=== PATIENT | female | born 1980 | race Caucasian/White ===

== ENCOUNTER 2016-11-14 22:59 | Emergency (ER) ==
[2016-11-14 23:02] VITALS: BP 139/92; TEMP 98.9; BMI 40.1
--- NOTE | 2016-11-14 23:30 | ED.PDOC ---
General ED Provider: Dr. CHARLIE RIDDLE-ER Chief Complaint: Knee Pain/Injury Stated Complaint: i strained my knee Time Seen by Physician: 23:05 Mode of Arrival: Walk-In Information Source: Patient, Family Exam Limitations: No limitations [facility] Documentation Reviewed and Agree: Yes Musculoskeletal Complaint Exam - Knee Pain Complaint/Exam Mechanism of Injury: Reports: Trauma Onset/Duration: today Symptoms Are: Still present Onset of Pain: Reports: Immediate Initial Severity: Mild Current Severity: Moderate Location: Reports: Discrete (left knee) Character: Reports: Dull, Aching Aggravating: Reports: Movement, Weight bearing, Prolonged standing Associated Signs and Symptoms: Denies: Swelling, Redness, Bruising, Fever, Weakness, Numbness, Tingling Able to Bear Weight: Yes Septic Arthritis Risk Factors: Reports: None Gout Risk Factors: Reports: None Knee Findings: Present: Swelling, Tenderness, Limited range of motion Jv Test Positive: No Hadley Test Positive: No Differential Diagnoses: Internal Derangement, Sprain, Strain Review of Systems - Review Of Systems Constitutional: Reports: No symptoms Eyes: Reports: No symptoms Ears, Nose, Mouth, Throat: Reports: No symptoms Respiratory: Reports: No symptoms Cardiac: Reports: No symptoms GI: Reports: No symptoms : Reports: No symptoms Musculoskeletal: Reports: Joint pain, Joint swelling, Muscle pain Skin: Reports: No symptoms Neurological: Reports: No symptoms Endocrine: Reports: No symptoms Hematologic/Lymphatic: Reports: No symptoms All Other Systems: Reviewed and Negative Past Medical History - Past Medical History Previously Healthy: Yes Endocrine: Reports: None Cardiovascular: Reports: None Respiratory: Reports: None Hematological: Reports: None Gastrointestinal: Reports: None Genitourinary: Reports: None Neuro/Psych: Reports: None Musculoskeletal: Reports: Back Pain Cancer: Reports: None Last Menstrual Period: 1 week ago - Surgical History General Surgical History: Reports: Tubal ligation, , Cholecystectomy - Family History Family History: Reports: Unknown - Social History Smoking Status: Current every day smoker Hx Substance Use: No Alcohol Screening: Occasionally Lives: With family Physical Exam - Physical Exam Appearance: Well-appearing, No pain distress, Well-nourished Pain Distress: Moderate Eyes: COURT, EOMI, Conjunctiva clear ENT: Ears normal, Nose normal, Oropharynx normal Neck: Supple Respiratory: Airway patent, Breath sounds clear, Breath sounds equal, Respirations nonlabored Cardiovascular: RRR GI/: Soft, Nontender, No masses, Bowel sounds normal, No Organomegaly Musculoskeletal: Normal strength Skin: Warm Neurological: Sensation intact Psychiatric: Affect appropriate, Mood appropriate, Anxious Interpretation - Radiology Interpretation Radiology Interpretation By: ED Physician Radiology Results: Negative Critical Care Note - Critical Care Note Total Time (mins): 0 Course - Course Orders, Labs, Meds: Orders Category Date Time Status ED DAVID WRAP .ONCE EMERGENCY 11/14/16 23:36 Active ED CRUTCHES .ONCE EMERGENCY 11/14/16 23:36 Active Hydrocodone Bit/Acetaminophen [[place] 7.5-325] MEDS 11/14/16 23:36 Stat 1 tab PO ONCE STA KNEE, LEFT 4 VIEWS Stat RADS 11/14/16 23:10 Taken Vital Signs: Temp Pulse Resp BP Pulse Ox 11/14/16 23:00 98.9 F 100 H 14 139/92 H 97 Departure - Departure Time of Disposition: 23:37 Disposition: HOME SELF-CARE Discharge Problem: Injury of knee Instructions: Leg Sprain (ED) Condition: Good Pt referred to PMD for follow-up: Yes Additional Instructions: ice and elevation tonight--norco 7.5mg q 4hrs prn pain#15--use crutches--see your pcp--you need mri vs ortho referral Allergies/Adverse Reactions: Allergies No Known Allergies Allergy (Verified 11/14/16 23:02) Home Medications: Ambulatory Orders Citalopram Hydrobromide [Celexa] 10 mg PO DAILY 07/31/15 Trazodone HCl 50 mg PO BEDTIME PRN #30 03/01/16 Disposition Discussed With: Patient, Family
[2016-11-14] MEDS ORDERED: NORCO 7.5-325 PO STA (23:36)
--- NOTE | 2016-11-14 23:41 | DI ---
Exam: Left knee four views History: Knee injury and pain Findings / impression: No bony or articular abnormality of the left knee. No obvious joint effusio n. Negative exam.
== END 2016-11-14 23:58 | disposition home or self-care (01) ==
LOC: ED 22:59
DX: S89.92XA Unspecified injury of left lower leg, initial encounter (principal); F17.210 Nicotine dependence, cigarettes, uncomplicated
CPT/HCPCS: 99283

== ENCOUNTER 2016-12-11 03:11 | Emergency (ER) ==
[2016-12-11 03:21] VITALS: BP 115/79; TEMP 98.7; BMI 40.0
--- NOTE | 2016-12-11 03:51 | DI ---
Exam: Chest two-view History: Cough FINDINGS: Normal cardiomediastinal contours. Normal pulmonary vasculature. Subtle interstitial pr ominence of the left lung base possibly retrocardiac. No correlation on the lateral projection. No consolidative opacities. Remainder of the lungs are clear. No acute chest wall abnormality. Minor endplate degenerative change. Impression: 1. Question subtle left basilar interstitial prominence could represent pneumonitis. No correlate on the lateral projection. Negative exam otherwise.
[2016-12-11] MEDS ORDERED: PREDNISONE PO STA (04:05)
[2016-12-11] MEDS ORDERED: DUONEB NEB STA (04:05)
[2016-12-11] MEDS ORDERED: LEVAQUIN PO STA (04:06)
--- NOTE | 2016-12-11 04:07 | ED.PDOC ---
General ED Provider: Dr. ANGELICA DELGADO Chief Complaint: Cough Stated Complaint: Pateint complains of cough productive of sputum for 5 days not improving. Admits to smoking 1/2 ppd but has not had a cigg in 5 days Time Seen by Physician: 03:50 Mode of Arrival: Walk-In Information Source: Patient Exam Limitations: No limitations [facility] Documentation Reviewed and Agree: Yes Respiratory Complaint Exam - Respiratory Complaint/Exam Onset/Duration: 5 days Symptoms Are: Still present Timing: Constant Initial Severity: Moderate Current Severity: Severe Location: Chest Character: Reports: Productive cough Aggravating: Reports: URI, Passive smoke exposure, Weather Alleviating: Reports: None Associated Signs and Symptoms: Reports: URI. Denies: Rapid breathing, Dyspnea, Fever, Chills, Chest pain, Pleuritic chest pain, Wheezing, Hemoptysis, Dizziness , Calf pain, Calf swelling, Edema, Nasal congestion, Hoarseness, Sinus discomfort, Vomiting, Sore throat, Weight loss, Decreased oral intake, Increased thirst, Increased appetite, Increased urination History of Healthcare-Acquired Pneumonia: No Related Surgical History: Reports: None Pulmonary Embolism Risk Factors: None Cardiac Risk Factors: Reports: None Pseudomonas Risk Factors: Reports: None Tuberculosis Risk Factors: Reports: None Status Asthmaticus Risk Factors: Reports: None Home Oxygen Use: No Recent Stress Test: No Recent Echo/LV Function: No Current Antibiotic Use: No Current Asthma Medication Use: No Respiratory Distress: None Inadequate Respiratory Effort: No Dysphagia Present: No Stridor Present: No JVD Present: No Accessory Muscle Use: No Retractions: Not Present Diminished Breath Sounds: No Sinus Tenderness: None Grunting Respirations: No Kussmaul Respirations: No Differential Diagnoses: Pneumonia, Bronchitis Review of Systems - Review Of Systems Constitutional: Reports: No symptoms Eyes: Reports: No symptoms Ears, Nose, Mouth, Throat: Reports: No symptoms Respiratory: Reports: Cough, Wheezing Cardiac: Reports: No symptoms GI: Reports: No symptoms : Reports: No symptoms Musculoskeletal: Reports: No symptoms Skin: Reports: No symptoms Neurological: Reports: Anxiety Endocrine: Reports: No symptoms Hematologic/Lymphatic: Reports: No symptoms All Other Systems: Reviewed and Negative Past Medical History - Past Medical History Previously Healthy: Yes Endocrine: Reports: None Cardiovascular: Reports: None Respiratory: Reports: None Hematological: Reports: None Gastrointestinal: Reports: None Genitourinary: Reports: None Neuro/Psych: Reports: None Musculoskeletal: Reports: Back Pain Cancer: Reports: None Last Menstrual Period: 11/27/16 - Surgical History General Surgical History: Reports: Tubal ligation, , Cholecystectomy - Family History Family History: Reports: Unknown - Social History Smoking Status: Current every day smoker Hx Substance Use: No Alcohol Screening: Occasionally - Immunizations Tetanus Shot up to Date: Yes Physical Exam - Physical Exam Appearance: Ill-appearing, Obese Ill-appearing: Moderate Pain Distress: None Eyes: COURT, EOMI, Conjunctiva clear ENT: Ears normal, Nose normal, Oropharynx normal Neck: Supple Respiratory: Rhonchi (mild on the left ), Wheezes (very faint) GI/: Soft, Nontender, No masses, Bowel sounds normal, No Organomegaly Musculoskeletal: Normal strength, ROM intact, No edema, No calf tenderness Skin: Warm, Dry, Normal color Neurological: Sensation intact, Motor intact, Reflexes intact, Cranial nerves intact, Alert, Oriented Psychiatric: Anxious Interpretation - Radiology Interpretation Radiology Interpretation By: Radiologist Radiology Results: Positive Exam Interpreted: CXR (subtile left basilar intersitial prominece) Critical Care Note - Critical Care Note Total Time (mins): 0 Course - Course Orders, Labs, Meds: Orders Category Date Time Status CHEST, 2 VIEWS PA & LAT Stat RADS 12/11/16 03:27 Completed Vital Signs: Temp Pulse Resp BP Pulse Ox 12/11/16 03:11 98.7 F 93 H 20 115/79 95 Departure - Departure Time of Disposition: 04:45 Disposition: HOME SELF-CARE Discharge Problem: Left lower lobe pneumonia Qualifiers: Pneumonia type: due to unspecified organism Qualifier Code: (J18.1) Lobar pneumonia, unspecified organism Instructions: Pneumonitis (ED) Condition: Fair Pt referred to PMD for follow-up: Yes Additional Instructions: Take medications as prescribed Follow up with PCP in 3 days Prescriptions: Levofloxacin [Levaquin] 500 mg PO DAILY #10 tablet Allergies/Adverse Reactions: Allergies No Known Allergies Allergy (Verified 12/11/16 03:20) Home Medications: Ambulatory Orders Citalopram Hydrobromide [Celexa] 10 mg PO DAILY 07/31/15 Trazodone HCl 50 mg PO BEDTIME PRN #30 03/01/16 Levofloxacin [Levaquin] 500 mg PO DAILY #10 tablet 12/11/16 Disposition Discussed With: Patient, Family
== END 2016-12-11 04:45 | disposition home or self-care (01) ==
LOC: ED 03:11
DX: J18.1 Lobar pneumonia, unspecified organism (principal); F17.210 Nicotine dependence, cigarettes, uncomplicated
CPT/HCPCS: 94640; 99283

== ENCOUNTER 2017-10-09 20:56 | Emergency (ER) ==
[2017-10-09 21:11] VITALS: BP 112/78; TEMP 97.4; BMI 41.0
[2017-10-09] MEDS ORDERED: DILAUDID 2 MG/ML SYRINGE IM STA (21:31)
[2017-10-09] MEDS ORDERED: PHENERGAN 25 MG/ML VIAL IM STA (21:31)
[2017-10-09] MEDS ORDERED: TORADOL IM STA (21:31)
--- NOTE | 2017-10-09 21:35 | ED.PDOC ---
General ED Provider: Dr. CHARLIE RIDDLE-ER Chief Complaint: Headache Stated Complaint: michelle got a migraine Time Seen by Physician: 21:33 Mode of Arrival: Walk-In Information Source: Patient Exam Limitations: No limitations Primary Care Provider: JAMEEL SANCHEZ Nursing and Triage Documentation Reviewed and Agree: Yes Reviewed sepsis parameters & appropriate labs ordered?: Yes System Inflammatory Response Syndrome: Not Applicable Sepsis Protocol: For patient's 13 years and over: Temp is 96.8 and below OR 101 and greater Pulse >90 BPM Resp >20/minute Acutely Altered Mental Status Are patient's symptoms suggestive of a new infection, such as: -Pneumonia -Skin, Soft Tissue -Endocarditis -UTI -Bone, Joint Infection -Implantable Device -Acute Abdominal Infection -Wound Infection -Meningitis -Blood Stream Catheter Infection -Unknown Neurological Complaint Exam - Headache Complaint/Exam Onset: Gradual Duration: several hours Symptoms Are: Still present Timing: Constant Worst Headache Ever: No Initial Severity: Mild Current Severity: Moderate Location: Diffuse Character: Reports: Dull, Throbbing, Typical headache, Migraine Aggravating: Reports: Bright lights Alleviating: Reports: None Associated Signs and Symptoms: Reports: Nausea, Vomiting. Denies: Dizziness, Seizure, Sinus pressure, Fever, Neck pain Related History: Reports: Similar episode. Denies: Recent trauma, Remote trauma Related Surgical History: Reports: None SAH Risk Factors: Reports: None Temporal Arteritis Risk Factors: Reports: Female, Normal Head CT Within Last 12 Months: No Fundoscopic Exam: Present: Normal Findings Papilledema Present: No Temporal Artery Tenderness: Present: None Sinus Tenderness: Present: None TMJ Tenderness: Present: None Glascow Coma Scale (see protocol): 15 Meningeal Signs Positive: Yes Pain on Passive Flexion-Positive Kernig's: No ROM Limited In: No Limitiations Focal Weakness: Present: None Gait: Normal Nystagmus Present: No Gag Reflex Present: Yes [id number]: Normal Findings Romberg Test Positive: No Babinski Sign: Negative Right, Negative Left Differential Diagnoses: Migraine Review of Systems - Review Of Systems Constitutional: Reports: No symptoms Eyes: Reports: No symptoms Ears, Nose, Mouth, Throat: Reports: No symptoms Respiratory: Reports: No symptoms Cardiac: Reports: No symptoms GI: Reports: Nausea, Vomiting : Reports: No symptoms Musculoskeletal: Reports: No symptoms Skin: Reports: No symptoms Neurological: Reports: Headache Endocrine: Reports: No symptoms Hematologic/Lymphatic: Reports: No symptoms All Other Systems: Reviewed and Negative Past Medical History - Past Medical History Previously Healthy: Yes Endocrine: Reports: None Cardiovascular: Reports: None Respiratory: Reports: None Hematological: Reports: None Gastrointestinal: Reports: None Genitourinary: Reports: None Neuro/Psych: Reports: None Musculoskeletal: Reports: Back Pain Cancer: Reports: None Last Menstrual Period: 1 WEEK AGO - Surgical History General Surgical History: Reports: Tubal ligation, , Cholecystectomy - Family History Family History: Reports: Unknown - Social History Smoking Status: Current every day smoker, Light tobacco smoker Hx Substance Use: No Alcohol Screening: None Lives: With family - Immunizations Tetanus Shot up to Date: Yes Physical Exam - Physical Exam Appearance: Well-appearing, No pain distress, Well-nourished Eyes: COURT, EOMI, Conjunctiva clear ENT: Ears normal, Nose normal, Oropharynx normal Neck: Supple Respiratory: Airway patent, Breath sounds clear, Breath sounds equal, Respirations nonlabored Cardiovascular: RRR, Pulses normal, No rub, No murmur GI/: Soft, Nontender, No masses, Bowel sounds normal, No Organomegaly Musculoskeletal: Normal strength Skin: Warm Neurological: Sensation intact Psychiatric: Affect appropriate, Mood appropriate, Anxious Interpretation - Radiology Interpretation Radiology Interpretation By: Radiologist Radiology Results: Negative Exam Interpreted: CT Scan Re-Evaluation - Re-Evaluation Time of Re-Evaluation: 23:10 Status: Improved Vital Signs Stable: Yes Pain Level: 1 Appearance: NAD Lungs: Clear Skin: Warm and Dry Neuro: Alert and Oriented X3 CV: RRR Critical Care Note - Critical Care Note Total Time (mins): 0 Course - Course Orders, Labs, Meds: Lab Review 10/09/17 21:45 Serum , Qual Negative Orders Category Date Time Status SERUM Stat LAB 10/09/17 21:45 Completed Hydromorphone HCl/Pf [Dilaudid 2 mg/ml Syringe] MEDS 10/09/17 21:31 Discontinued 2 mg IM ONCE STA Ketorolac Tromethamine [Toradol] MEDS 10/09/17 21:31 Discontinued 60 mg IM ONCE STA Promethazine HCl [Phenergan 25 mg/ml Vial] MEDS 10/09/17 21:31 Discontinued 25 mg IM ONCE STA CT HEAD W/O CONTRAST Stat RADS 10/09/17 21:31 Completed Medications Discontinued Medications Generic Name Dose Route Start Last Admin Trade Name Kirstin PRN Reason Stop Dose Admin Hydromorphone HCl 2 mg 10/09/17 21:31 10/09/17 22:13 Dilaudid 2 Mg/Ml Syringe IM 10/09/17 21:32 2 mg ONCE STA Administration Ketorolac Tromethamine 60 mg 10/09/17 21:31 10/09/17 22:13 Toradol IM 10/09/17 21:32 60 mg ONCE STA Administration Promethazine HCl 25 mg 10/09/17 21:31 10/09/17 22:12 Phenergan 25 Mg/Ml Vial IM 10/09/17 21:32 25 mg ONCE STA Administration Vital Signs: Temp Pulse Resp BP Pulse Ox 10/09/17 20:57 97.4 F L 84 18 112/78 96 Departure - Departure Time of Disposition: 23:10 Disposition: HOME SELF-CARE Discharge Problem: Migraine Qualifiers: Migraine type: without aura Status migrainosus presence: without status migrainosus Intractability: not intractable Qualified Code(s): G43.009 - Migraine without aura, not intractable, without status migrainosus Instructions: Migraine Headache (ED) Condition: Good Pt referred to PMD for follow-up: Yes IPMP verified?: No Allergies/Adverse Reactions: Allergies bupropion [From Wellbutrin] Adverse Reaction (Verified 10/09/17 21:12) MIGRAINE ALSO N/V Home Medications: Ambulatory Orders Citalopram Hydrobromide [Celexa] 10 mg PO DAILY 07/31/15 Albuterol Sulfate [Proair Hfa] 2 puff IH Q6H PRN #1 puff 12/11/16 Disposition Discussed With: Patient, Family
--- NOTE | 2017-10-09 23:05 | CT ---
EXAM: CT scan brain without contrast HISTORY: Headache COMPARISON: None. FINDINGS: Contiguous axial images obtained from the skull base to the convexities without contrast u tilizing 5-mm collimation. Sagittal coronal reconstructions were imaged and reviewed. The ventricle s and CSF spaces are within normal limits. There are no acute intracranial findings. Visualized par anasal sinuses and mastoid air cells are clear. IMPRESSION: No acute intracranial findings
== END 2017-10-09 23:17 | disposition home or self-care (01) ==
LOC: ED 20:56
DX: G43.009 Migraine without aura, not intractable, without status migrainosus (principal); F17.210 Nicotine dependence, cigarettes, uncomplicated
CPT/HCPCS: 36415; 84703; 96372; 99283

== ENCOUNTER 2018-01-30 09:23 | Outpatient (CLI) ==
--- NOTE | 2018-01-30 12:20 | DI ---
EXAM: Lumbar spine radiographs. HISTORY: Low back pain. COMPARISON: 03/07/2010. TECHNIQUE: 5 views of the lumbar spine. FINDINGS: The normal curvature and alignment are maintained. Vertebral body heights are normal. No fracture or subluxation identified. There is moderate loss of disc height at L3-4 with mild loss of disc height at L4-5. Mild multilevel endplate osteophyte formation is present. Multilevel facet ar thropathy is greater in the lower lumbar spine, mild to moderate. Sacral arcuate lines are intact. Soft tissues are unremarkable. Cholecystectomy clips are present. IMPRESSION: Mild to moderate degenerative changes, greater in the lower lumbar spine.
== END 2018-01-30 09:24 | disposition home or self-care (01) ==
LOC: RAD 09:23
PROVIDERS: ATTEND Physician Assistant
DX: M54.5 Low back pain (principal)

== ENCOUNTER 2018-02-20 10:00 | Outpatient (RCR) ==
--- NOTE | 2018-01-31 10:31 | RS.OPPTEV2 ---
Date of Note: 01/30/18 Visit #: 1 Date of Evaluation: 01/30/18 Payer Source: Medicaid Surgery Performed?: No Treatment Diagnosis: Low back pain History of Condition/Mechanism of Injury:: pt reports she has had back pain for several years but had episode of increased back pain that began approx 2 weeks ago. Functional Limitations: Reaching, Carrying, Sitting, Standing, Bending, Ambulation, Community Access/Integration Current Subjective/complaints:: pt states pain increases with standing as well as sitting for prolonged periods of time. States she had xrays today prior to coming to therapy Treatment Side (optional): N/A *Precautions: n/a Medical History Medical History: Unremarkable Surgical History: Cholecystectomy Surgical History Comments:: 3 c sections, cyst removed from ovary Smoking Status: Current some day smoker Diagnostic Testing/Imaging:: lumbar xray from 01/30/18: mild to moderate degenerative changes greater in the lower lumbar spine Hx Home Medications: zoloft, ibuprofen Patient's Goals: decrease pain Pain Assessment - Pain Description Pain Location: lumbar area Pain Description: Aching Current Pain Intensity: 6 Functional Outcome Measure Oswestry LBP: 37 (74%) - G Codes & Severity Modifier G Codes & Modifier: n/a Source of G Code score: n/a Observation - Observation Inspection: LLE is longer than RLE, R iliac crest higher than L. Posture: Forward Head, Rounded Shoulders, Increased Thoracic Kyphosis, Decreased Lumbar Lordosis Handedness: Right Gait - Gait Pattern Gait Comments: amb with guarded posture General Range of Motion: BUE WFL's. BLE WFL's Muscle Strength: BUE 5/5. LLE: hip flex 3+/5, knee flex/ext 4-/5, ankle DF/PF 5 /5. RLE: hip flex 3/5, knee flex/ext 4/5, ankle DF/PF 5/5 - ROM Lumbar Flexion: Hand reach to Mid-Thighs Sidebending to Left: Reach to Mid-thigh Sidebending to Right: Reach to Mid-thigh Lumbar Spine ROM Limitations: Soft Tissue Tightness, Muscle Weakness, Pain Comments: pt with increased pain with all planes of motion. pt also with increased pain with hip flex. pt lumbar ROM is limited due to pain and muscle guarding - Strength Trunk Extension: 4- Good- Trunk Flexion: 3- Fair- Trunk Lateral Flexion: 3- Fair- Trunk Rotation: 3- Fair- - Special Tests SLR Test: Positive Left, Positive Right Seated Dural Stretch Test: Positive Left SI Joint Compression: Positive Palpation Palpation Findings: Tenderness, Trigger Point, Muscle Guarding Comments:: pt with tenderness and muscle guarding L lumbosacral area. Trigger points noted at L SI joint Sensation - Sensation Right Upper Extremity: Intact/Normal Left Upper Extremity: Intact/Normal Right Lower Extremity: Intact/Normal Left Lower Extremity: Impaired (n/t and pain radiating into LLE to thigh) Balance - Sitting Balance Static Sitting Balance: Normal Dynamic Sitting Balance: Normal - Standing Balance Static Standing Balance: Normal Dynamic Standing Balance: Normal - Treatment Modality: Ultrasound Parameters/Method Applied: 1.5w/cm2 x 7 mins Treatment Area: L SI area Patient Position: Sitting - Heat/Cryotherapy Treatment: Cryotherapy Comments:: L lumbosacral area Interventions - Exercise/Activities/Manual Therapy Exercises/Activities: pt received gentle hamstring stretches, isometric hip add x 3. Muscle energy technique with resisted L hip ext, R hip flex. Manual Therapy: n/a HOME EXERCISE PROGRAM: pt given written HEP including hamstring stretch, isometric hip add, standing lumbar ext and muscle energy - Charges Timed Code Treatment Minutes: 54 Total Treatment Time: 62 Procedures billed for this date of service:: eval low, ultrasound, hot pack EVALUATION COMPLEXITY LEVEL EVALUATION COMPLEXITY LEVEL: HISTORY: Low (LBP), EXAM OF BODY SYSTEMS: Medium, CLINICAL PRESENTATION: Medium, CLINICAL DECISION MAKING: Low Assessment Assessment: pt presents with pain in the L SI area radiating into L thigh. pt with muscle guarding, trigger points noted. pt with leg length discrepancy due to SI joint dysfunction. BLE strength decreased, limited due to pain. Patient Education: Home Exercise Program, Education of Plan of Care Rehab Potential: Good Short Term Goals Goal #1: pt rate pain < 6/10 with activity Goal to be met by: 02/13/18 Goal #2: B LE hamstring flexibility L equal to R Goal to be met by: 02/13/18 Goal #3: No leg length discrepancy noted. Goal to be met by: 02/13/18 Goal #4: pt independent with initial HEP Goal to be met by: 02/13/18 [facility] Goals Goal #1: pt with no reports of radiating pain into LLE Goal to be met by: 02/27/18 Goal #2: Increased ability to perform normal household duties w less pain Goal to be met by: 02/27/18 Goal #3: Improve BLE strength 4 to 4+/5 Goal to be met by: 02/27/18 Plan - Treatment to be Provided Procedures: Therapeutic Exercises, Neuromuscular Rehab, Manual Therapy, Massage , Patient Education Modalities: Electrical Stimulation, Ultrasound/Phonophoresis, Cryotherapy, Hot Packs - Treatment Plan Frequency: 2 X week Duration: 4 weeks ORDER # VISITS AND/OR THROUGH DATE: 02/27/18 - Treatment Code (1) Low back pain Code(s): M54.5 - LOW BACK PAIN Qualifiers: Chronicity: chronic Back pain laterality: left Sciatica presence: with sciatica Sciatica laterality: sciatica of left side Qualified Code(s): M54.42 - Lumbago with sciatica, left side; G89.29 - Other chronic pain (2) Sacroiliac dysfunction Code(s): M53.3 - SACROCOCCYGEAL DISORDERS, NOT ELSEWHERE CLASSIFIED (3) Radicular leg pain Code(s): M54.10 - RADICULOPATHY, SITE UNSPECIFIED (4) Muscle weakness Code(s): M62.81 - MUSCLE WEAKNESS (GENERALIZED) (5) Hamstring tightness Code(s): M62.89 - OTHER SPECIFIED DISORDERS OF MUSCLE
--- NOTE | 2018-02-06 11:18 | RS.OPPTDN ---
Subjective Date of Note: 02/06/18 Visit #: 2 Date of Evaluation: 01/30/18 Payer Source: Medicaid Treatment Diagnosis: Low back pain Current Subjective/complaints:: Patient reports she frequently has to change positions due to severe back pain. *Precautions: n/a Pain Assessment - Pain Description Pain Location: lumbar/LE's Pain Description: Burning, Radiating, Throbbing, Aching Current Pain Intensity: 8/10 - Heat/Cryotherapy Treatment: Hot Pack (20 mins. prior to exercises) Interventions - Exercise/Activities/Manual Therapy Exercises/Activities: 25 mins. total ,patient instruction and return demo of posterior pelvic tilts,SKTC,DKTC,90/90 hams. stretches.Also instructed in sidelying for gravity -assisted piriformis/IT band stretches. Total minutes of Exercise: 25 Manual Therapy: n/a Total minutes of Manual Therapy: 0 HOME EXERCISE PROGRAM: pt given written HEP including hamstring stretch, isometric hip add, standing lumbar ext and muscle energy - Charges Timed Code Treatment Minutes: 25 Total Treatment Time: 45 Procedures billed for this date of service:: hp,ex 2 Assessment: Patient reports relief with posterior pelvic tilts.She has good hamstring extensibility bilaterally.She has increased discomfort when in supine as the pelvis tilts anteriorly.Recommended if she wants to rest on her back to elevate the LE's as much as possible ,as flexion gives her relief.She is very attentive to recommendations for her low back care. Patient Education: Education of diagnosis, Body/Joint mechanics, Home Exercise Program, Home Safety, Activity Modification, Education of Plan of Care Patient demonstrates compliance with HEP?: Yes Short Term Goals Goal #1: pt rate pain < 6/10 with activity Goal to be met by: 02/13/18 Goal #2: B LE hamstring flexibility L equal to R Goal to be met by: 02/13/18 Progress towards Goal:: Partially Met Goal #3: No leg length discrepancy noted. Goal to be met by: 02/13/18 Progress towards Goal:: Progressing Goal #4: pt independent with initial HEP Goal to be met by: 02/13/18 Progress towards Goal:: Progressing Jail Goals Goal #1: pt with no reports of radiating pain into LLE Goal to be met by: 02/27/18 Goal #2: Increased ability to perform normal household duties w less pain Goal to be met by: 02/27/18 Goal #3: Improve BLE strength 4 to 4+/5 Goal to be met by: 02/27/18 Plan PLAN OF CARE EXPIRES ON:: 02/27/18 ORDER # VISITS AND/OR THROUGH DATE: 02/27/18 PLAN: Continue PT to eliminate back pain ,educate patient for better posture / body mechanics.
--- NOTE | 2018-02-10 12:02 | RS.OPPTDN ---
Subjective Date of Note: 02/10/18 Visit #: 3 Number of visits approved by Insurance: 8 Date of Evaluation: 01/30/18 Payer Source: Medicaid Treatment Diagnosis: Low back pain Current Subjective/complaints:: Reports the relief from last session lasted about 2 hours.Her pain today is slightly less than last session. *Precautions: n/a Pain Assessment - Pain Description Pain Location: lumbar Pain Description: Dull, Aching, Chronic Current Pain Intensity: 6 Other Comments regarding Pain:: reduced to 2/10 immediately after modalities and then in supine position - Treatment Modality: Ultrasound Parameters/Method Applied: 10 mins. @ 1.5 w/cm2 ,continuous mode to lumbar/SI region. Patient Position: Sitting - Heat/Cryotherapy Treatment: Hot Pack (20 mins. prior to US) Interventions - Exercise/Activities/Manual Therapy Exercises/Activities: 20 mins. total , posterior pelvic tilts,SKTC,DKTC,90/90 hams. stretches,piriformis stretches. Total minutes of Exercise: 20 Manual Therapy: n/a Total minutes of Manual Therapy: 0 HOME EXERCISE PROGRAM: pt given written HEP including hamstring stretch, isometric hip add, standing lumbar ext and muscle energy - Charges Timed Code Treatment Minutes: 30 Total Treatment Time: 50 Procedures billed for this date of service:: hp,US,ex 1 Assessment: Patient able to do exercises better today,less guarded as the back pain is less immediately after modalities.She is guarded with attempting the piriforms stretches today.She reports increased pain with trunk extension in standing.The pelvic tilts lessen the pain.She is compliant to HEP. Patient Education: Education of diagnosis, Body/Joint mechanics, Home Exercise Program, Home Safety, Activity Modification, Education of Plan of Care Patient demonstrates compliance with HEP?: Yes Short Term Goals Goal #1: pt rate pain < 6/10 with activity Goal to be met by: 02/13/18 Progress towards Goal:: Progressing Goal #2: B LE hamstring flexibility L equal to R Goal to be met by: 02/13/18 Progress towards Goal:: Met Goal #3: No leg length discrepancy noted. Goal to be met by: 02/13/18 Progress towards Goal:: Progressing Goal #4: pt independent with initial HEP Goal to be met by: 02/13/18 Progress towards Goal:: Progressing Half-Way Goals Goal #1: pt with no reports of radiating pain into LLE Goal to be met by: 02/27/18 Goal #2: Increased ability to perform normal household duties w less pain Goal to be met by: 02/27/18 Goal #3: Improve BLE strength 4 to 4+/5 Goal to be met by: 02/27/18 Plan Dates of Half-Way Goals: 02/27/18 Expiration date of current Insurance Approval:: 03-01-18 PLAN: Continue PT to reduce/eliminate back pain ,increase core strength.
--- NOTE | 2018-02-13 11:27 | RS.OPPTDN ---
Subjective Date of Note: 02/13/18 Visit #: 4 Number of visits approved by Insurance: 8 Date of Evaluation: 01/30/18 Payer Source: Medicaid Treatment Diagnosis: Low back pain Current Subjective/complaints:: Patient reports her pain is worse than last session ,also hurting in the upper back today.She presents with guarded,flexed posture as she walks into clinic. *Precautions: n/a Pain Assessment - Pain Description Pain Location: upper,mid ,and low back today Pain Description: Tightness, Dull, Aching, Chronic Current Pain Intensity: 8 - Treatment Modality: Ultrasound Parameters/Method Applied: 10 mins. @ 1.5 w/cm2 ,continuous mode to lumbar/SI area Patient Position: Sitting - Heat/Cryotherapy Treatment: Hot Pack (20 mins. prior to US) Interventions - Exercise/Activities/Manual Therapy Exercises/Activities: 25 mins. total , posterior pelvic tilts,SKTC,DKTC,90/90 hams. stretches,piriformis stretches.Instructed in abdominal crunches in short ROM. Total minutes of Exercise: 25 Manual Therapy: n/a Total minutes of Manual Therapy: 0 HOME EXERCISE PROGRAM: pt given written HEP including hamstring stretch, isometric hip add, standing lumbar ext and muscle energy - Charges Timed Code Treatment Minutes: 35 Total Treatment Time: 55 Procedures billed for this date of service:: hp,US,ex 2 Assessment: Patient continues to get relief with pelvic tilts ,but reports muscle spasms the longer she stays in a posterior tilt.She has good hamstring extensibility again today,no increased pain with this motion.She has poor tolerance to piriformis stretch,reports pain as the LE crosses midline of her body.We discussed at length the benefits of stretches,but to also strengthen the core for stability. Patient Education: Education of diagnosis, Body/Joint mechanics, Home Exercise Program, Home Safety, Activity Modification, Education of Plan of Care Patient demonstrates compliance with HEP?: Yes Short Term Goals Goal #1: pt rate pain < 6/10 with activity Goal to be met by: 02/13/18 (elevated to 8/10 today) Progress towards Goal:: Regressing Goal #2: B LE hamstring flexibility L equal to R Goal to be met by: 02/13/18 Progress towards Goal:: Met Goal #3: No leg length discrepancy noted. Goal to be met by: 02/13/18 Progress towards Goal:: Partially Met Goal #4: pt independent with initial HEP Goal to be met by: 02/13/18 Progress towards Goal:: Progressing Detention Goals Goal #1: pt with no reports of radiating pain into LLE Goal to be met by: 02/27/18 Goal #2: Increased ability to perform normal household duties w less pain Goal to be met by: 02/27/18 Goal #3: Improve BLE strength 4 to 4+/5 Goal to be met by: 02/27/18 Plan Dates of Adoption Agent Goals: 02/27/18 Expiration date of current Insurance Approval:: PLAN: Continue PT to reduce/eliminate LBP,educate patient on core strengthening /body mechanics .
--- NOTE | 2018-02-17 11:06 | RS.OPPTDN ---
Subjective Date of Note: 02/17/18 Visit #: 5 Number of visits approved by Insurance: 8 Date of Evaluation: 01/30/18 Payer Source: Medicaid Treatment Diagnosis: Low back pain Current Subjective/complaints:: Patient reports temporary relief only , continues to have back pain with all acrtivities,frequently changes positions for relief.She is doing her stretches.We discussed focusing on strengthening more ,as her flexibility has improved. *Precautions: n/a Pain Assessment - Pain Description Pain Location: lumbar Pain Description: Dull, Aching, Chronic Current Pain Intensity: 5-6 - Heat/Cryotherapy Treatment: Hot Pack (20 mins. prior to exercises) Interventions - Exercise/Activities/Manual Therapy Exercises/Activities: 35 mins. total , posterior pelvic tilts,SKTC,DKTC,90/90 hams. stretches.Strengthening exercises of alternate hip flexion ,heelslides,SLR 's,hip abd /adduction,bridging.Recommended HEP to be done 2-3x/day ,10 -15 reps. each. Total minutes of Exercise: 35 Manual Therapy: n/a Total minutes of Manual Therapy: 0 HOME EXERCISE PROGRAM: pt given written HEP including hamstring stretch, isometric hip add, standing lumbar ext and muscle energy - Charges Timed Code Treatment Minutes: 35 Total Treatment Time: 55 Procedures billed for this date of service:: hp,ex 2 Assessment: Patient has good return demo of strengthening exercises today,but moves slowly and guarded .They do not elicit pain while she is in supine or hooklying. Patient Education: Education of diagnosis, Body/Joint mechanics, Home Exercise Program, Home Safety, Activity Modification, Education of Plan of Care Patient demonstrates compliance with HEP?: Yes Short Term Goals Goal #1: pt rate pain < 6/10 with activity Goal to be met by: 02/13/18 (5-6/10 today) Progress towards Goal:: Progressing Goal #2: B LE hamstring flexibility L equal to R Goal to be met by: 02/13/18 Progress towards Goal:: Met Goal #3: No leg length discrepancy noted. Goal to be met by: 02/13/18 Progress towards Goal:: Partially Met Goal #4: pt independent with initial HEP Goal to be met by: 02/13/18 Progress towards Goal:: Progressing Snf Goals Goal #1: pt with no reports of radiating pain into LLE Goal to be met by: 02/27/18 Progress towards goal: Progressing Goal #2: Increased ability to perform normal household duties w less pain Goal to be met by: 02/27/18 Goal #3: Improve BLE strength 4 to 4+/5 Goal to be met by: 02/27/18 Progress towards goal: Progressing Plan Dates of Assisted Living Coordinator Goals: 02/27/18 Expiration date of current Insurance Approval:: 03/01/18 PLAN: Give copies of HEP.Initiate D/C plan next session if patient continues to report temporary relief only
--- NOTE | 2018-02-20 11:10 | RS.OPPTDN ---
Subjective Date of Note: 02/20/18 Visit #: 6 Number of visits approved by Insurance: 8 Date of Evaluation: 01/30/18 Payer Source: Medicaid Treatment Diagnosis: Low back pain Current Subjective/complaints:: Patient rports no significant change ,the pain averages from 6 to 8/10 most of the time.She agrees with D/C plan today,and now has copies of HEP. *Precautions: n/a Pain Assessment - Pain Description Pain Location: lumbar,hips,LE's Pain Description: Dull, Aching, Chronic Current Pain Intensity: 5-6 - Heat/Cryotherapy Treatment: Hot Pack (20 mis. prior to HEP ) Interventions - Exercise/Activities/Manual Therapy Exercises/Activities: 30 mins. total , additional home exercises given for core strengthening,including bridging,SLR,hip abduction in supine or side-lying, prone alternating UE/LE extension,standing wall slides,abdominal crunches in short ROM,minisquats. Total minutes of Exercise: 30 Manual Therapy: n/a HOME EXERCISE PROGRAM: pt given written HEP including hamstring stretch, isometric hip add, standing lumbar ext and muscle energy - Charges Timed Code Treatment Minutes: 30 Total Treatment Time: 50 Procedures billed for this date of service:: hp,ex 2 Assessment: Patient has met rehab potential at this time.She reports temporary relief only .Shee does have HEP for core and LE strengthening.She is aware of D/ C plan today due to no significant improvement. Patient Education: Education of diagnosis, Body/Joint mechanics, Home Exercise Program, Home Safety, Activity Modification, Education of Plan of Care Patient demonstrates compliance with HEP?: Yes Short Term Goals Goal #1: pt rate pain < 6/10 with activity Goal to be met by: 02/13/18 (5-6/10 today) Progress towards Goal:: No Change Goal #2: B LE hamstring flexibility L equal to R Goal to be met by: 02/13/18 Progress towards Goal:: Met Goal #3: No leg length discrepancy noted. Goal to be met by: 02/13/18 Progress towards Goal:: Met Goal #4: pt independent with initial HEP Goal to be met by: 02/13/18 Progress towards Goal:: Met Halfway Goals Goal #1: pt with no reports of radiating pain into LLE Goal to be met by: 02/27/18 Progress towards goal: No Change Goal #2: Increased ability to perform normal household duties w less pain Goal to be met by: 02/27/18 Progress towards goal: No Change Goal #3: Improve BLE strength 4 to 4+/5 Goal to be met by: 02/27/18 Progress towards goal: Progressing Plan Dates of Supply Chain Coordinator Goals: 02/27/18 Expiration date of current Insurance Approval:: 03/01/18 PLAN: Discharge due to minimal progress,has good understanding of HEP.
== END 2018-02-26 23:59 ==
PROVIDERS: ATTEND Physician Assistant
DX: M54.42 Lumbago with sciatica, left side (principal); M53.3 Sacrococcygeal disorders, not elsewhere classified; M54.10 Radiculopathy, site unspecified; M62.81 Muscle weakness (generalized); M62.89 Other specified disorders of muscle

== ENCOUNTER 2018-06-10 13:34 | Outpatient (CLI) | END 2018-06-10 13:35 | disposition home or self-care (01) | LOC: CAR 13:34 | PROVIDERS: ATTEND Psychiatry & Neurology Sleep Medicine | DX: G47.33 Obstructive sleep apnea (adult) (pediatric) (principal) | CPT/HCPCS: 95810 ==

== ENCOUNTER 2018-08-25 10:00 | Outpatient (RCR) ==
--- NOTE | 2018-08-14 16:04 | RS.OPPTEV2 ---
Date of Note: 08/13/18 Visit #: 1 Number of visits approved by Insurance: pending Date of Evaluation: 08/13/18 Payer Source: Medicaid Surgery Performed?: No Treatment Diagnosis: Lumbar radiculopathy History of Condition/Mechanism of Injury:: Patient reports she has had several years of back pain. States pain has progressively gotten worse over the last year. She tried Outpatient PT in January of 2018 here at [place] without progress. She began going to Pain Management last month and has received Epidurl steroid injections in the lumbar spine. Prior Level of Function.....Patient was independent with: ADL's, Self Care, Work /Vocation, Caregiving, Ambulation/Mobility, Community Integration/Access Functional Limitations: Sleep, Self Care, ADL's, Reaching, Pushing, Pulling, Lifting, Carrying, Sitting, Standing, Bending, Squatting, Ambulation, Community Access/Integration Current Subjective/complaints:: Mrs. Diaz reports she has started receiving injections and hopes to be able to tolerate exercises to improve her back. States the first injection in the low back helped quite a bit. The second injection was a little higher in the back and it did not help at all. She will be having injections again in August. Reports constant muscle guarding along her low back. States she was shown at the [facility] therapy department how to use a ball for pressure to the lumbar paraspinals. States her pain is always there. She has difficulty tolerating most positions for very long. Describes difficulty sitting more than 10-15 mins, or standing or walking very long. She can get temporary relief of pain when she is standing, if she can lean over onto a support to let her low back muscles relax. She has muscle relaxant, but takes only if she really has to because they knock her out. She reports some ease of discomfort with use of heat. Describes pain usually into the left LE. States radiating pain alternates. On a bad day, she will have pain into both legs, regardless of her position. She has difficulty sleeping due to having to toss and turn to get comfortable. She usually sleeps more on the left side in the position. She cannot perform daily household tasks, such as washing dishes and cleaning. She wants to avoid back surgery. Treatment Side (optional): Bilateral *Precautions: n/a Medical History Medical History: Unremarkable Surgical History: Cholecystectomy Surgical History Comments:: 3 c sections, cyst removed from ovary Smoking Status: Current some day smoker Diagnostic Testing/Imaging:: MRI of lumbar w/o constrast on 05/16/18: Impression : Moderate degenerative disc disease of the lumbar spine. There is no appreciable thecal sac stenosis or severe neural foraminal narrowing. Hx Home Medications: Phentermine, pro air, citalopram, vit D, [place] 3, Ibuprofen and flexeril. Patient's Goals: Her goal is to get some relief of back pain to improve her functional ability. She wants to avoid back surgery. Pain Assessment - Pain Description Pain Location: low back and LE's. Current Pain Intensity: 7/10 Worst Pain Intensity: 10+/10 Functional Outcome Measure Oswestry LBP: 76 - G Codes & Severity Modifier G Codes & Modifier: NA Source of G Code score: Na Observation - Observation Posture: Forward Head, Rounded Shoulders BMI - BMI Weight: 284 lb Height: 5 ft 9 in BMI: 41.9 Gait - Gait Pattern Gait Comments: Patient ambulates without an assistive with wide TREVON. She demonstrates a guarded gait with decreased bilateral hip and knee flexion. She exhibits inconsistent foot clearance of either foot with ambulation in the department. She demonstrates no loss of balance or veering from midline. - ROM Lumbar Flexion: Hand reach to patellae Sidebending to Left: Reach to Mid-thigh Sidebending to Right: Reach to Lateral Joint Line Comments: With attempts of lumbar flexion, most flexion is at the hips. Lumbar spine demonstrates minimal flexion. Reports pain in the back at end range. Extension 10-15 degrees beyond neutral causes increased pain in the low back and into the left buttock. Sidebending to the left also increases pain. Sidebend to the right causes just the feeling of pulling in the left low back. Lower trunk rotation to the left "feels good", to the right she reports increased pain. Bilateral LE AROM is WFL's. - Strength Trunk Lateral Flexion: 4- Good- Trunk Rotation: 4- Good- Comments: Left hip flexion, IR, and ER 4/5. All else of left LE 4+/5. Right LE generally 4+/5. - Special Tests SLR Test: Negative Left, Negative Right Seated Dural Stretch Test: Negative Left, Negative Right SI Joint Compression: Negative Comments: Pt posteriorly tilts pelvis to allow full knee extension while sitting when testing MS or Seated dural test. She also does this when assessing HS length in supine. She demonstrates optimal HS length, but feels the need to tilt the pelvis posteriorly. Palpation Comments:: Patient reports tenderness over bilateral SI joints, with Central AP 's to the lower lumbar vertebrae and in general over the lumbosacral junction. She demonstrates moderate muscle guarding along the lumbar paraspinals. Sensation - Sensation Right Lower Extremity: Intact/Normal Left Lower Extremity: Intact/Normal Comments: Currently denies any tingling or numbness in the LE's. Additional Comments: Additional Comments: Unable to lie supine with both legs extended to assess leg length. Interventions - Exercise/Activities/Manual Therapy Exercises/Activities: None today Manual Therapy: n/a HOME EXERCISE PROGRAM: none - Charges Timed Code Treatment Minutes: 0 mins Total Treatment Time: 55 mins Procedures billed for this date of service:: EVAL Medium EVALUATION COMPLEXITY LEVEL EVALUATION COMPLEXITY LEVEL: HISTORY: Medium (Chronic LBP, Obesity), EXAM OF BODY SYSTEMS: Medium (MS, ROM, muscle tone, sensation, gait ), CLINICAL PRESENTATION: Medium, CLINICAL DECISION MAKING: Medium Assessment Assessment: Patient presents to therapy with a diagnosis of radiculopathy of the lumbar region. She reports progressive low back pain that has limited her functional level. She exhibits muscle guarding along the lumbar paraspinals, along with general tenderness throughout the lumbosacral region. Weakness is noted at the left hip and trunk. She is now having injections with Pain Management which should help her tolerate exercises with therapy to balance flexibilty and improve core strengthening to help decreased her pain. Patient Education: Education of diagnosis, Body/Joint mechanics, Activity Modification, Education of Plan of Care Rehab Potential: Good Short Term Goals Goal #1: Pt independent with initial HEP. Goal to be met by: 08/27/18 Goal #2: Left hip flexion strength 4+/5 Goal to be met by: 08/27/18 Goal #3: Pt able to maintain neutral pelvis with exercises in department. Goal to be met by: 08/27/18 Goal #4: Trunk strength improved to 4/5. Goal to be met by: 08/27/18 [facility] Goals Goal #1: Pt knows HEP and to continue ex's to maintain functional level at D/C. Goal to be met by: 09/27/18 Goal #2: Increased ability to perform normal household duties w/ min. LBP. Goal to be met by: 09/27/18 Goal #3: Lumbar AROM WFL's to perform ADL's. Goal to be met by: 09/27/18 Goal #4: Oswestry LBP scale improved to 46. Goal to be met by: 09/27/18 Plan - Treatment to be Provided Procedures: Therapeutic Exercises, Therapeutic Activity, Neuromuscular Rehab, Manual Therapy, Patient Education Modalities: Electrical Stimulation, Ultrasound/Phonophoresis, Cryotherapy, Hot Packs Other:: Main focus on exercise, modalities if necessary - Treatment Plan Frequency: 2-3 X week Duration: 6 weeks Dates of Legal Counsel Goals: 09/27/18 Expiration date of current Insurance Approval:: pending - Treatment Code (1) Lumbar radicular pain Code(s): M54.16 - RADICULOPATHY, LUMBAR REGION Comments: M54.16 (2) Obesity Code(s): E66.9 - OBESITY, UNSPECIFIED Qualifiers: Obesity type: unspecified obesity type Obesity classification: adult class 3 (BMI >= 40) Serious obesity comorbidity presence: unspecified whether serious comorbidity present Body mass index: BMI 40.0-44.9 Qualified Code(s) : E66.01 - Morbid (severe) obesity due to excess calories; Z68.41 - Body mass index (BMI) 40.0-44.9, adult
--- NOTE | 2018-08-19 11:49 | RS.OPPTDN ---
Subjective Date of Note: 08/19/18 Visit #: 2 Number of visits approved by Insurance: pending Date of Evaluation: 08/13/18 Payer Source: Medicaid Treatment Diagnosis: Lumbar radiculopathy Current Subjective/complaints:: Patient reports the L lumbar bothers more than the R side today. *Precautions: n/a Pain Assessment - Pain Description Pain Location: lumbar Pain Description: Dull, Aching, Chronic Current Pain Intensity: not rated Interventions - Exercise/Activities/Manual Therapy Exercises/Activities: 55 mins. total , including pelvic tilts , SKTC,DKTC,LTR in hooklying,alternating hip flexion ,hip abd/adduction,SLR's , abdominal crunches in short ROM,bridging.Patient education for strengthening the core , postural awareness. Total minutes of Exercise: 55 Manual Therapy: n/a Total minutes of Manual Therapy: 0 HOME EXERCISE PROGRAM: Pelvic tilts,SLR's,alternating hip flexion,LTR.Focus on strengthening more than stretches. - Charges Timed Code Treatment Minutes: 55 Total Treatment Time: 55 Procedures billed for this date of service:: ex 4 Assessment: Patient has good flexibility,instructed to focus on strengthening the core and low back due to lumbar instability.She is very attentive and motivated to improve.She reports muscle spasms ,but understands to condition the muscles for better tone ,which can reduce the spasms. Patient Education: Education of diagnosis, Body/Joint mechanics, Home Exercise Program, Home Safety, Activity Modification, Education of Plan of Care Patient demonstrates compliance with HEP?: Yes Short Term Goals Goal #1: Pt independent with initial HEP. Goal to be met by: 08/27/18 Progress towards Goal:: Progressing Goal #2: Left hip flexion strength 4+/5 Goal to be met by: 08/27/18 Goal #3: Pt able to maintain neutral pelvis with exercises in department. Goal to be met by: 08/27/18 Progress towards Goal:: Progressing Goal #4: Trunk strength improved to 4/5. 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 Goal to be met by: 09/27/18 Progress towards goal: Progressing Goal #2: Increased ability to perform normal household duties w/ min. LBP. Goal to be met by: 09/27/18 Goal #3: Lumbar AROM WFL's to perform ADL's. Goal to be met by: 09/27/18 Goal #4: Oswestry LBP scale improved to 46. Goal to be met by: 09/27/18 Plan Dates of Penitentiary Goals: 09/27/18 Expiration date of current Insurance Approval:: na PLAN: Cont. skilled PT to strengthen the LE's /core ,reduce back pain.
--- NOTE | 2018-08-21 10:06 | RS.CXNS ---
Date of scheduled appointment: 08/21/18 Type: Cancel Reason for Cancel/NS: No transportation
--- NOTE | 2018-08-25 11:35 | RS.OPPTDN ---
Subjective Date of Note: 08/25/18 Visit #: 3 Number of visits approved by Insurance: pending Date of Evaluation: 08/13/18 Payer Source: Medicaid Treatment Diagnosis: Lumbar radiculopathy Current Subjective/complaints:: pt states that her back continues to hurt, limits her ability to perform normal daily activities. *Precautions: n/a Pain Assessment - Pain Description Pain Location: low back radiating into LLE Pain Description: Burning, Sharp, Aching Current Pain Intensity: 7-8/10 - Heat/Cryotherapy Treatment: Hot Pack Comments:: attempted x 5-6 mins, pt unable to tolerate position any longer (per pt request hot pack while sitting in chair) Interventions - Exercise/Activities/Manual Therapy Exercises/Activities: pt performed pelvic tilts x 5 reps, SKTC x 5-8 reps, DKTC x 5, LTR in hooklying, alternating hip flex, hip abd/add x 6 reps, isometric hip add, gentle piriformis stretch x 3 pt requires multiple rest periods between ex due to pain, pt had to stand up from table twice due to pain. Total minutes of Exercise: 31mins Manual Therapy: n/a HOME EXERCISE PROGRAM: Pelvic tilts,SLR's,alternating hip flexion,LTR.Focus on strengthening more than stretches. - Charges Timed Code Treatment Minutes: 31 Total Treatment Time: 49 Procedures billed for this date of service:: exercise 2 Assessment: pt unable to tolerate many ex this visit due to pain. pt reports she did not take her muscle relaxer this am. pt limited due to pain this visit. Patient Education: Home Exercise Program, Education of Plan of Care Patient demonstrates compliance with HEP?: Yes Short Term Goals Goal #1: Pt independent with initial HEP. Goal to be met by: 08/27/18 Progress towards Goal:: Progressing Goal #2: Left hip flexion strength 4+/5 Goal to be met by: 08/27/18 Goal #3: Pt able to maintain neutral pelvis with exercises in department. Goal to be met by: 08/27/18 Progress towards Goal:: Progressing Goal #4: Trunk strength improved to 4/5. Goal to be met by: 08/27/18 Snf Goals Goal #1: Pt knows HEP and to continue ex's to maintain functional level at D/C. Goal to be met by: 09/27/18 Progress towards goal: Progressing Goal #2: Increased ability to perform normal household duties w/ min. LBP. Goal to be met by: 09/27/18 Goal #3: Lumbar AROM WFL's to perform ADL's. Goal to be met by: 09/27/18 Goal #4: Oswestry LBP scale improved to 46. Goal to be met by: 09/27/18 Plan Dates of Snf Goals: 09/27/18 Expiration date of current Insurance Approval:: pending PLAN: plan to continue with stabilization ex and strengthening.
== END 2018-08-26 23:59 ==
PROVIDERS: ATTEND Physical Medicine & Rehabilitation
DX: M54.16 Radiculopathy, lumbar region (principal)

== ENCOUNTER 2018-09-11 10:00 | Outpatient (RCR) ==
--- NOTE | 2018-08-29 11:05 | RS.OPPTDN ---
Subjective Date of Note: 08/29/18 Visit #: 4 Number of visits approved by Insurance: pending Date of Evaluation: 08/13/18 Payer Source: Medicaid Treatment Diagnosis: Lumbar radiculopathy Current Subjective/complaints:: Patient reports she has talen a muscle relaxer just before leaving home ,is pain free at this time .She does report feeling ," out of alignment " in the low back. *Precautions: n/a Pain Assessment - Pain Description Pain Location: lumbar Pain Description: Aching, Chronic Current Pain Intensity: 0 at rest Interventions - Exercise/Activities/Manual Therapy Exercises/Activities: 55 mins. total of core/LE strengthening exercises , beginning with pelvic tilts,alternating hip flexion woth 2#,heelslides ,SLR's without resistance,abdominal crunches in short ROM,alternate cross-over crunches.Multiple reps. of each today.Patient education for flexion versus extension techniques. Total minutes of Exercise: 55 Manual Therapy: n/a HOME EXERCISE PROGRAM: Pelvic tilts,SLR's,alternating hip flexion,LTR.Focus on strengthening more than stretches. - Charges Timed Code Treatment Minutes: 55 Total Treatment Time: 55 Procedures billed for this date of service:: ex 4 Assessment: Patient gives good return demo of exercises today,fatigues very easily from general de-conditioned state.She has good lumbar/hip ROM, understands to focus on strengthening,minimum emphasis on stretches at this time. Patient Education: Education of diagnosis, Body/Joint mechanics, Home Exercise Program, Home Safety, Activity Modification, Education of Plan of Care Patient demonstrates compliance with HEP?: Yes Short Term Goals Goal #1: Pt independent with initial HEP. Goal to be met by: 08/27/18 Progress towards Goal:: Progressing Goal #2: Left hip flexion strength 4+/5 Goal to be met by: 08/27/18 Progress towards Goal:: Progressing Goal #3: Pt able to maintain neutral pelvis with exercises in department. Goal to be met by: 08/27/18 Progress towards Goal:: Progressing Goal #4: Trunk strength improved to 4/5. Goal to be met by: 08/27/18 Progress towards Goal:: Progressing Longterm Goals Goal #1: Pt knows HEP and to continue ex's to maintain functional level at D/C. Goal to be met by: 09/27/18 Progress towards goal: Progressing Goal #2: Increased ability to perform normal household duties w/ min. LBP. Goal to be met by: 09/27/18 Goal #3: Lumbar AROM WFL's to perform ADL's. Goal to be met by: 09/27/18 Goal #4: Oswestry LBP scale improved to 46. 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 PT ,focus on core strength to reduce LBP.
--- NOTE | 2018-09-01 09:56 | RS.OPPTDN ---
Subjective Date of Note: 09/01/18 Visit #: 5 Number of visits approved by Insurance: pending Date of Evaluation: 08/13/18 Payer Source: Medicaid Treatment Diagnosis: Lumbar radiculopathy Current Subjective/complaints:: Reports moderate soreness in the low back and hips,but no sharp pain at rest. *Precautions: n/a Pain Assessment - Pain Description Pain Location: lumbar/hips Pain Description: Aching, Chronic Current Pain Intensity: 5-6/10 Interventions - Exercise/Activities/Manual Therapy Exercises/Activities: 55 mins. total of core/LE strengthening exercises , beginning with pelvic tilts,alternating hip flexion woth 3 #,heelslides ,SLR's with 3# on R ,no resistance for L LE,abdominal crunches in short ROM,bridging,4 -pt quads.Patient education for walking program. Total minutes of Exercise: 55 Manual Therapy: n/a Total minutes of Manual Therapy: 0 HOME EXERCISE PROGRAM: Pelvic tilts,SLR's,alternating hip flexion,LTR.Focus on strengthening more than stretches. - Charges Timed Code Treatment Minutes: 55 Total Treatment Time: 55 Procedures billed for this date of service:: ex3,ther. act. Assessment: Patient progressing ,tolerates strengtheninng exercise,with reports of fatigue /aching in the low back /hips ,but no sharp pain present.Patient given red t-band today for hEP . Patient Education: Education of diagnosis, Body/Joint mechanics, Home Exercise Program, Home Safety, Activity Modification, Education of Plan of Care Patient demonstrates compliance with HEP?: Yes Short Term Goals Goal #1: Pt independent with initial HEP. Goal to be met by: 08/27/18 Progress towards Goal:: Progressing Goal #2: Left hip flexion strength 4+/5 Goal to be met by: 08/27/18 Progress towards Goal:: Progressing Goal #3: Pt able to maintain neutral pelvis with exercises in department. Goal to be met by: 08/27/18 Progress towards Goal:: Progressing Goal #4: Trunk strength improved to 4/5. Goal to be met by: 08/27/18 Progress towards Goal:: Progressing Retirement Goals Goal #1: Pt knows HEP and to continue ex's to maintain functional level at D/C. Goal to be met by: 09/27/18 Progress towards goal: Progressing Goal #2: Increased ability to perform normal household duties w/ min. LBP. Goal to be met by: 09/27/18 Goal #3: Lumbar AROM WFL's to perform ADL's. Goal to be met by: 09/27/18 Goal #4: Oswestry LBP scale improved to 46. Goal to be met by: 09/27/18 Plan Dates of Retirement Goals: 09/27/18 Expiration date of current Insurance Approval:: na PLAN: Cont. skilled PT to maximize LE/core strength ,eliminate LBP with ADL's.
--- NOTE | 2018-09-04 09:55 | RS.OPPTDN ---
Subjective Date of Note: 09/04/18 Visit #: 6 Number of visits approved by Insurance: pending Date of Evaluation: 08/13/18 Payer Source: Medicaid Treatment Diagnosis: Lumbar radiculopathy Current Subjective/complaints:: Patient reports muscle soreness as exercises progres ,but no back pain this AM.She took a muscle relaxer this AM.She has appt. next week for injections ,hoping to assist with exercising more without pain. *Precautions: n/a Pain Assessment - Pain Description Pain Location: lumbar/hips Pain Description: Aching, Chronic Pain Description: muscle soreness Current Pain Intensity: 0 at rest Interventions - Exercise/Activities/Manual Therapy Exercises/Activities: 45 mins. total of core/LE strengthening exercises , beginning with pelvic tilts,alternating hip flexion woth 3 #,heelslides ,SLR's with 3# .Alternating UE/LE in supine with 3#,bridging x 10 .Progressed to upright exercises,doing postural pullbacks with green t-band,at 3 different angles.HEP review. Total minutes of Exercise: 45 Manual Therapy: n/a Total minutes of Manual Therapy: 0 HOME EXERCISE PROGRAM: Pelvic tilts,SLR's,alternating hip flexion,LTR.Focus on strengthening more than stretches. - Charges Timed Code Treatment Minutes: 45 Total Treatment Time: 45 Procedures billed for this date of service:: ex 3 Assessment: Patient progressing ,has more erect posture today,less intensity and less frequency of back pain.She has increased strength in the legs and pelvic girdle.She is motivated to improve. Patient Education: Education of diagnosis, Body/Joint mechanics, Home Exercise Program, Home Safety, Activity Modification, Education of Plan of Care Patient demonstrates compliance with HEP?: Yes Short Term Goals Goal #1: Pt independent with initial HEP. Goal to be met by: 08/27/18 Progress towards Goal:: Met Goal #2: Left hip flexion strength 4+/5 Goal to be met by: 08/27/18 Progress towards Goal:: Partially Met (met on R ,progressing on L) Goal #3: Pt able to maintain neutral pelvis with exercises in department. Goal to be met by: 08/27/18 Progress towards Goal:: Progressing Goal #4: Trunk strength improved to 4/5. 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 Goal to be met by: 09/27/18 Progress towards goal: Met Goal #2: Increased ability to perform normal household duties w/ min. LBP. Goal to be met by: 09/27/18 Progress towards goal: Progressing Goal #3: Lumbar AROM WFL's to perform ADL's. Goal to be met by: 09/27/18 Progress towards goal: Progressing Goal #4: Oswestry LBP scale improved to 46. Goal to be met by: 09/27/18 Plan Dates of Group Home Goals: 09/27/18 Expiration date of current Insurance Approval:: pending PLAN: Cont. skilled PT ,initiate D/C plan next week.
--- NOTE | 2018-09-11 15:47 | RS.OPPTDN ---
Subjective Date of Note: 09/11/18 Visit #: 7 Number of visits approved by Insurance: pending Date of Evaluation: 08/13/18 Payer Source: Medicaid Treatment Diagnosis: Lumbar radiculopathy Current Subjective/complaints:: Marlen reports she will not be able to get her set of injections until October 02. States she was really hoping to get them last week, while she was still attending therapy sessions. States she did a lot of exercises with Reyes,SAIL REPAIR PERSON last visit and states she had quite an increase in pain for a few days. States she performs exercises at home and understands that she will need to continue the exercises following D/C from therapy. States she will just make today her last visit, because it will be three more weeks before she can get injections and she can continue her exercises on her own. She does report that she can now shave her legs easier since performing exercises in therapy. *Precautions: n/a Pain Assessment - Pain Description Pain Location: low back Current Pain Intensity: moderate Interventions - Exercise/Activities/Manual Therapy Exercises/Activities: Assisted patient with stretching of HS, SKTC, piriformis, and lower trunk rotation. Performed pelvic tilts, alternate leg and arm lifts in hooklying, alternate hip flexion in hooklying, SLR's. Discussed how to progress exercises by holding contraction longer, performing more reps, or can add resistance. Standing scapular retraction and wall slide performed. Summarized these exercises and gave photo copy for HEP. Total minutes of Exercise: X 50 mins Manual Therapy: n/a HOME EXERCISE PROGRAM: Pelvic tilts,SLR's,alternating hip flexion, scapular retraction with theraband and wall slides. - Charges Timed Code Treatment Minutes: 50 mins Total Treatment Time: 50 mins Procedures billed for this date of service:: EX, ADL Assessment: Marlen reports she can continue her HEP on her own. She is not able to get her injections until 10/02/18. She understands that her plan of care goes to 09/27/18, but states she will just stop therapy today. Patient demonstrates compliance with HEP?: Yes Short Term Goals Goal #1: Pt independent with initial HEP. Goal to be met by: 08/27/18 Progress towards Goal:: Met Goal #2: Left hip flexion strength 4+/5 Goal to be met by: 08/27/18 Progress towards Goal:: Partially Met (met on R ,progressing on L) Goal #3: Pt able to maintain neutral pelvis with exercises in department. Goal to be met by: 08/27/18 Progress towards Goal:: Not Met Goal #4: Trunk strength improved to 4/5. Goal to be met by: 08/27/18 Progress towards Goal:: Not Met Comments:: Pt to continue with HEP Group Home Goals Goal #1: Pt knows HEP and to continue ex's to maintain functional level at D/C. Goal to be met by: 09/27/18 Progress towards goal: Met Goal #2: Increased ability to perform normal household duties w/ min. LBP. Goal to be met by: 09/27/18 Progress towards goal: Not Met Goal #3: Lumbar AROM WFL's to perform ADL's. Goal to be met by: 09/27/18 Progress towards goal: Not Met Goal #4: Oswestry LBP scale improved to 46. Goal to be met by: 09/27/18 Progress towards goal: Not Met Plan Dates of Project Consultant Goals: 09/27/18 Expiration date of current Insurance Approval:: 09/27/18 PLAN: Plan for D/C.
== END 2018-09-26 23:59 ==
PROVIDERS: ATTEND Physical Medicine & Rehabilitation
DX: M54.16 Radiculopathy, lumbar region (principal)